=== PATIENT | female | born 1960 | race Caucasian/White ===

== ENCOUNTER 2016-12-08 15:25 | Emergency (ER) | payer MEDICARE, OTHER ==
[2016-12-08] MEDS ORDERED: SODIUM CHLORIDE 0.9% 1,000 ML IV ONE (16:27)
[2016-12-08] MEDS ORDERED: HALOPERIDOL 5 MG/ML VIAL IVP STA (16:27)
[2016-12-08] MEDS ORDERED: HALOPERIDOL 5 MG/ML VIAL ONE (16:42)
== END 2016-12-08 18:08 | disposition home or self-care (01) ==
DX: R51 Headache (principal); Z98.84 Bariatric surgery status

== ENCOUNTER 2017-03-27 09:01 | Outpatient (CLI) | payer MEDICARE, OTHER | END 2017-03-27 09:02 | disposition home or self-care (01) | DX: R06.09 Other forms of dyspnea (principal); R11.2 Nausea with vomiting, unspecified; R60.0 Localized edema; R71.8 Other abnormality of red blood cells; R23.3 Spontaneous ecchymoses ==

== ENCOUNTER 2017-04-23 12:40 | Outpatient (CLI) | payer MEDICARE, OTHER ==
[2017-04-23 13:00] LABS: BASOPHILS % (AUTO) 0.3 %; EOSINOPHILS # (AUTO) 0.1 10^3/uL (0.0-0.7); EOSINOPHILS % (AUTO) 1.9 %; HCT - HEMATOCRIT 34.3 % (37.0-47.0); HGB - HEMOGLOBIN 11.2 g/dL (12.0-16.0); LYMPHOCYTES # (AUTO) 2.9 10^3/uL (1.5-3.5); MEAN CORPUSCULAR HEMOGLOBIN 25.8 pg (27.0-31.0); MEAN CORPUSCULAR HGB CONC 32.5 g/dL (32.0-36.0); MEAN CORPUSCULAR VOLUME 79.3 fL (81.0-99.0); MEAN PLATELET VOLUME 7.2 fL (7.9-10.8); MONOCYTES # (AUTO) 0.5 10^3/uL (0.0-1.0); MONOCYTES % (AUTO) 6.5 %; NEUTROPHILS # (AUTO) 3.9 10^3/uL (1.5-6.6); NEUTROPHILS % (AUTO) 52.3 %; RED BLOOD COUNT 4.33 10^6/uL (4.20-5.40); RED CELL DISTRIBUTION WIDTH 15.1 % (12.0-15.0); UNCORRECTED WHITE BLOOD COUNT 7.4 x10^3/uL; WHITE BLOOD COUNT 7.4 x10^3/uL (4.8-10.8)
[2017-04-23 13:36] LABS: IRON 29 ug/dL (28-170); TOTAL IRON BINDING CAPACITY 459 ug/dL (250-450); TRANSFERRIN 328 mg/dL (192-382)
== END 2017-04-23 12:41 | disposition home or self-care (01) ==
LOC: LAB 12:40
PROVIDERS: ATTEND Family Medicine
DX: R71.8 Other abnormality of red blood cells (principal)
CPT/HCPCS: 36415; 83540; 84466; 85025

== ENCOUNTER 2017-09-17 11:29 | Outpatient (CLI) | payer MEDICARE, OTHER | END 2017-09-17 11:30 | disposition home or self-care (01) | LOC: SC 11:29 | PROVIDERS: ATTEND Internal Medicine Pulmonary Disease | DX: G47.33 Obstructive sleep apnea (adult) (pediatric) (principal) | CPT/HCPCS: 99203; G0463; 99212 ==

== ENCOUNTER 2017-11-06 20:24 | Outpatient (CLI) | payer MEDICARE, OTHER | END 2017-11-06 20:25 | disposition home or self-care (01) | LOC: SC 20:24 | PROVIDERS: ATTEND Internal Medicine Pulmonary Disease | DX: G47.33 Obstructive sleep apnea (adult) (pediatric) (principal) | CPT/HCPCS: 95810 ==

== ENCOUNTER 2017-11-13 14:34 | Emergency (ER) | payer MEDICARE, OTHER ==
[2017-11-13] MEDS ORDERED: DEXAMETHASONE 10 MG/ML VIAL PO STA (15:16)
--- NOTE | 2017-11-13 15:22 | ED Physician Documentation ---
PD [facility] HEENT - Stated complaint Stated Complaint: EAR PX - Chief complaint Chief Complaint: Heent - History obtained from History obtained from: Patient - History of Present Illness Timing - onset: How many weeks ago (2) Timing - duration: Weeks (2) Timing - details: Gradual onset, Still present Location: Left ear, Sinuses, Nose Improves: Medication Associated symptoms: Congestion, Rhinorrhea. No: Fever Similar symptoms before: Diagnosis (sinusitis and ruptured ear drum) Recently seen: Not recently seen - Additional information Additional information: 57-year-old female with a prior history of ruptured left TM has developed sinus symptoms over the past 2 weeks and these have progressed. She now has developed pain in both of her ears. This is similar to what she had when she ruptured her left TM. Review of Systems Constitutional: denies: Fever, Chills Eyes: denies: Decreased vision Ears: reports: Ear pain Nose: reports: Rhinorrhea / runny nose, Congestion, Sinus pressure / pain Throat: reports: Sore throat Cardiac: denies: Chest pain / pressure, Palpitations Respiratory: denies: Dyspnea, Cough GI: denies: Nausea, Vomiting : denies: Dysuria, Frequency Skin: denies: Rash Musculoskeletal: denies: Neck pain, Back pain, Extremity pain Neurologic: denies: Generalized weakness, Focal weakness, Numbness Psychiatric: reports: Insomnia PD PAST MEDICAL HISTORY - Past Medical History Respiratory: Pneumonia - Past Surgical History Past Surgical History: Yes General: Gastric surgery Ortho: Hip replacement, Arthroscopic surgery, 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 - Present Medications Home Medications: Ambulatory Orders Medication Instructions Recorded Confirmed Estrogens, Conjugated [Premarin] 0.625 tab PO QPM 04/17/16 11/13/17 Famotidine [Pepcid] 40 mg PO QPM 04/17/16 11/13/17 Trazodone HCl 200 mg PO DAILY 04/17/16 11/13/17 Acetaminophen/Cod 300/30 [Tylenol 2 each PO Q4-6H PRN 07/25/17 11/13/17 #3] Butalbital/Aspirin/Caffeine 2 cap PO PRN PRN 07/25/17 11/13/17 [Fiorinal 50-325-40 mg Capsule] Divalproex Sodium [Depakote ER] 1,500 mg PO DAILY PM 07/25/17 11/13/17 Ondansetron HCl [Zofran] 8 mg PO PRN PRN 07/25/17 11/13/17 Vortioxetine Hydrobromide 10 mg PO DAILY 07/25/17 11/13/17 [Trintellix] tiZANidine [Zanaflex] 8 mg PO DAILY PM 07/25/17 11/13/17 Azithromycin [Zithromax] 250 mg PO DAILY #6 tablet 11/13/17 - Allergies Allergies/Adverse Reactions: Allergies Allergy/AdvReac Type Severity Reaction Status Date / Time tetracycline Allergy Unknown Verified 08/22/17 14:29 - Social History Does the pt smoke?: No Smoking Status: Never smoker Does the pt drink ETOH?: No Does the pt have substance abuse?: No - POLST Patient has POLST: No PD ED PE NORMAL - Vitals Vital signs reviewed: Yes (normal ) - General General: No acute distress, Well developed/nourished - HEENT HEENT: Atraumatic, PERRL, EOMI, Other (both TM's are inflamed and retracted. Inflamation appears superficial. ) - Neck Neck: Supple, no meningeal sign, No bony TTP - Cardiac Cardiac: RRR, No murmur - Respiratory Respiratory: No respiratory distress, Clear bilaterally - Abdomen Abdomen: Soft, Non tender - Back Back: No CVA TTP, No spinal TTP - Derm Derm: Normal color, Warm and dry, No rash - Extremities Extremities: No deformity, No edema - Neuro Neuro: No motor deficit, No sensory deficit Eye Opening: Spontaneous Motor: Obeys Commands Verbal: Oriented GCS Score: 15 - Psych Psych: Normal mood, Normal affect Results - Vitals Vitals: Vital Signs - 24 hr 11/13/17 14:45 Temperature 36.3 C L Heart Rate 77 Respiratory 16 Rate Blood Pressure 125/68 O2 Saturation 97 Oxygen O2 Source Room air PD MEDICAL DECISION MAKING - ED course Complexity details: considered differential, d/w patient ED course: 57-year-old female with a prior ruptured TM is developed symptoms again and has inflammation in both TMs with retraction of the TMs. She has had sinus congestion not relieved by any [id number] preparations. She is administered dexamethasone here in the emergency department and will place her on a Z-Amauri. She has had good luck with this previously. Departure - Departure Disposition: 01 Home, Self Care Clinical Impression: Otitis media Qualifiers: Otitis media type: suppurative Chronicity: acute Laterality: bilateral Recurrence: not specified as recurrent Spontaneous tympanic membrane rupture: without spontaneous rupture Qualified Code(s): H66.003 - Acute suppurative otitis media without spontaneous rupture of ear drum, bilateral Condition: Stable Instructions: ED Otitis Media Acute Adult Follow-Up: Connor Downing MD [Primary Care Provider] - Prescriptions: Azithromycin [Zithromax] 250 mg PO DAILY #6 tablet
[2017-11-13 15:36] VITALS: BP 125/68
== END 2017-11-13 15:25 | disposition home or self-care (01) ==
LOC: ED 14:34
DX: H66.003 Acute suppurative otitis media without spontaneous rupture of ear drum, bilateral (principal); R09.81 Nasal congestion
CPT/HCPCS: 99283

== ENCOUNTER 2017-11-30 11:15 | Emergency (ER) | payer MEDICARE, OTHER ==
[2017-11-30] MEDS ORDERED: BENZONATATE 100 MG CAPSULE PO STA (12:33)
[2017-11-30] MEDS ORDERED: DEXAMETHASONE 10 MG/ML VIAL PO STA (12:33)
--- NOTE | 2017-11-30 12:36 | ED Physician Documentation ---
History of Present Illness - Stated complaint Stated Complaint: BILAT EAR PX - Chief complaint Chief Complaint: Heent - History obtained from History obtained from: Patient, Family - History of Present Illness Timing: How many weeks ago (2) Pain level max: 7 Pain level now: 6 Improved by: nothing Worsened by: nothing - Additonal information Additional information: Patient is a 57-year-old female who presents to the emergency department after being ill for the past several weeks, she states she was seen recently and treated with azithromycin for a bilateral ear infection. States that her ear pain is worsened over the past 2-3 days. Has nasal congestion, rhinorrhea, Dry cough and is now lost her voice. Review of Systems Ten Systems: 10 systems reviewed and negative Constitutional: denies: Fever, Chills Ears: reports: Ear pain (B) Nose: reports: Rhinorrhea / runny nose, Congestion, Sinus pressure / pain Throat: denies: Sore throat Cardiac: denies: Chest pain / pressure Respiratory: reports: Cough. 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 - Present Medications Home Medications: Ambulatory Orders Medication Instructions Recorded Confirmed Estrogens, Conjugated [Premarin] 0.625 tab PO QPM 04/17/16 11/30/17 Famotidine [Pepcid] 40 mg PO QPM 04/17/16 11/30/17 Trazodone HCl 200 mg PO DAILY 04/17/16 11/30/17 Acetaminophen/Cod 300/30 [Tylenol 2 each PO Q4-6H PRN 07/25/17 11/30/17 #3] Butalbital/Aspirin/Caffeine 2 cap PO PRN PRN 07/25/17 11/30/17 [Fiorinal 50-325-40 mg Capsule] Divalproex Sodium [Depakote ER] 1,500 mg PO DAILY PM 07/25/17 11/30/17 Ondansetron HCl [Zofran] 8 mg PO PRN PRN 07/25/17 11/30/17 Vortioxetine Hydrobromide 10 mg PO DAILY 07/25/17 11/30/17 [Trintellix] tiZANidine [Zanaflex] 8 mg PO DAILY PM 07/25/17 11/30/17 Benzonatate [Tessalon Perle] 100 - 200 mg PO TID PRN #30 capsule 11/30/17 Cetirizine HCl/Pseudoephedrine 1 each PO BID PRN #30 tab.er.12h 11/30/17 [Zyrtec-D Tablet] Meloxicam [Mobic] 7.5 mg PO BID PRN #20 tablet 11/30/17 - Allergies Allergies/Adverse Reactions: Allergies Allergy/AdvReac Type Severity Reaction Status Date / Time tetracycline Allergy Unknown Verified 11/30/17 11:20 - Social History Does the pt smoke?: No Smoking Status: Never smoker Does the pt drink ETOH?: No Does the pt have substance abuse?: No - Immunizations Immunizations are current?: Yes - POLST Patient has POLST: No PD ED PE NORMAL - Vitals Vital signs reviewed: Yes - General General: Alert and oriented X 3, No acute distress - HEENT HEENT: Ears normal, Moist mucous membranes, Other (mild posterior oropharyngeal erythema, without exudates. uvula midline. no sinus tenderness.) - Neck Neck: Supple, no meningeal sign, No adenopathy - Cardiac Cardiac: RRR, Strong equal pulses - Respiratory Respiratory: No respiratory distress, Clear bilaterally - Derm Derm: Warm and dry, No rash - Neuro Neuro: Alert and oriented X 3 - Psych Psych: Normal mood, Normal affect Results - Vitals Vitals: Vital Signs - 24 hr 11/30/17 11:18 Temperature 36 C L Heart Rate 92 Respiratory 16 Rate Blood Pressure 114/92 H O2 Saturation 97 Oxygen O2 Source Room air PD MEDICAL DECISION MAKING - ED course Complexity details: reviewed old records, considered differential, d/w patient, d/w family ED course: Patient is a 57-year-old female with a viral upper respiratory infection. Will place on antitussives as well as decongestants for home and continue supportive care. No evidence of pneumonia, sepsis. No hypoxia. No respiratory distress. Patient counseled regarding signs and symptoms for which I believe and urgent re-evaluation would be necessary. Patient with good understanding of and agreement to plan and is comfortable going home at this time This document was made in part using voice recognition software. While efforts are made to proofread this document, sound alike and grammatical errors may occur. Departure - Departure Disposition: 01 Home, Self Care Clinical Impression: Viral URI Condition: Good Instructions: ED Viral Syndrome Follow-Up: Connor Downing MD [Primary Care Provider] - Within 1 week Prescriptions: Benzonatate [Tessalon Perle] 100 - 200 mg PO TID PRN #30 capsule PRN Reason: Cough Cetirizine HCl/Pseudoephedrine [Zyrtec-D Tablet] 1 each PO BID PRN #30 tab.er.12h PRN Reason: Nasal Congestion Meloxicam [Mobic] 7.5 mg PO BID PRN #20 tablet PRN Reason: Pain Comments: Return if you worsen. drink plenty of fluids and rest. Honey with tea will also help
[2017-11-30 12:52] VITALS: BP 126/82
== END 2017-11-30 13:10 | disposition home or self-care (01) ==
LOC: ED 11:15
DX: J06.9 Acute upper respiratory infection, unspecified (principal); B97.89 Other viral agents as the cause of diseases classified elsewhere; K21.9 Gastro-esophageal reflux disease without esophagitis
CPT/HCPCS: 99283; A9270

== ENCOUNTER 2017-12-11 15:00 | Outpatient (CLI) | payer MEDICARE, OTHER | END 2017-12-11 15:01 | disposition home or self-care (01) | LOC: SC 15:00 | PROVIDERS: ATTEND Nurse Practitioner Family | DX: G47.33 Obstructive sleep apnea (adult) (pediatric) (principal) | CPT/HCPCS: 99214; G0463; 99212 ==

== ENCOUNTER 2018-01-20 17:45 | Emergency (ER) | payer MEDICARE, OTHER ==
--- NOTE | 2018-01-20 19:32 | ED Physician Documentation ---
PD HPI UPPER EXT INJURY - Stated complaint Stated Complaint: RT ARM INJ - Chief complaint Chief Complaint: Ext Problem - History obtained from History obtained from: Patient - History of Present Illness Location: Right, Arm, Forearm Type of injury: Fall (fell down some steps and struck right arm and forearm. Has ROM of joints. 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 - Present Medications Home Medications: Ambulatory Orders Medication Instructions Recorded Confirmed Estrogens, Conjugated [Premarin] 0.625 tab PO QPM 04/17/16 11/30/17 Famotidine [Pepcid] 40 mg PO QPM 04/17/16 11/30/17 Trazodone HCl 200 mg PO DAILY 04/17/16 11/30/17 Acetaminophen/Cod 300/30 [Tylenol 2 each PO Q4-6H PRN 07/25/17 11/30/17 #3] Butalbital/Aspirin/Caffeine 2 cap PO PRN PRN 07/25/17 11/30/17 [Fiorinal 50-325-40 mg Capsule] Divalproex Sodium [Depakote ER] 1,500 mg PO DAILY PM 07/25/17 11/30/17 Ondansetron HCl [Zofran] 8 mg PO PRN PRN 07/25/17 11/30/17 Vortioxetine Hydrobromide 10 mg PO DAILY 07/25/17 11/30/17 [Trintellix] tiZANidine [Zanaflex] 8 mg PO DAILY PM 07/25/17 11/30/17 Benzonatate [Tessalon Perle] 100 - 200 mg PO TID PRN #30 capsule 11/30/17 Cetirizine HCl/Pseudoephedrine 1 each PO BID PRN #30 tab.er.12h 11/30/17 [Zyrtec-D Tablet] Meloxicam [Mobic] 7.5 mg PO BID PRN #20 tablet 11/30/17 HYDROcod/ACETAM 5/325 [[place] 5/325] 1 tab PO Q6H PRN #12 tablet 01/20/18 - Allergies Allergies/Adverse Reactions: Allergies Allergy/AdvReac Type Severity Reaction Status Date / Time adhesive tape Allergy eats skin Verified 01/20/18 17:58 tetracycline Allergy Unknown Verified 01/20/18 17:57 - Social History Does the pt smoke?: No Smoking Status: Never smoker Does the pt drink ETOH?: No Does the pt have substance abuse?: No - Immunizations Immunizations are current?: Yes - POLST Patient has POLST: No PD ED PE NORMAL - Vitals Vital signs reviewed: Yes - General General: Alert and oriented X 3, Well developed/nourished - HEENT HEENT: Atraumatic - Neck Neck: Supple, no meningeal sign, No bony TTP, No adenopathy - Cardiac Cardiac: RRR, No murmur - Respiratory Respiratory: Clear bilaterally - Abdomen Abdomen: Soft, Non tender - Derm Derm: Normal color, Warm and dry - Extremities Extremities: Normal ROM s pain (at shoulder and elbow), Other (right forearm swelling and tender mid forearm. no deformity.) - Neuro Neuro: Alert and oriented X 3, No motor deficit, No sensory deficit Results - Vitals Vitals: Oxygen O2 Source Room air - Rads (name of study) humerus Radiology: Prelim report reviewed (no fracture) forearm Radiology: Prelim report reviewed (no fracture) PD MEDICAL DECISION MAKING - ED course Complexity details: d/w patient Departure - Departure Disposition: 01 Home, Self Care Clinical Impression: Accidental fall Qualifiers: Encounter type: initial encounter Qualified Code(s): W19.XXXA - Unspecified fall, initial encounter Forearm contusion Qualifiers: Encounter type: initial encounter Laterality: right Qualified Code(s): S50.11XA - Contusion of right forearm, initial encounter Condition: Stable Record reviewed to determine appropriate education?: Yes Instructions: ED Contusion Upper Ext Follow-Up: Evert Valverde MD [Primary Care Provider] - Prescriptions: HYDROcod/ACETAM 5/325 [[place] 5/325] 1 tab PO Q6H PRN #12 tablet PRN Reason: Pain Comments: No signs of fractures on x-ray. Use the sling as needed for comfort. Progress activity as able. Tylenol or ibuprofen if needed for pains. Add hydrocodone if needed. Recheck if not improving over the next several days to week. Discharge Date/Time: 01/20/18 22:20
[2018-01-20] MEDS ORDERED: HYDROcod/ACETAM 5/325 MG TABLET PO STA (19:52)
--- NOTE | 2018-01-20 21:17 | XRAY Preliminary Report ---
Exam: XR FOREARM RT IMPRESSION: No evidence for acute fracture. Chronic changes as above. [facility] SITE ID: [id number]
--- NOTE | 2018-01-20 21:17 | XRAY Report ---
EXAM: RIGHT FOREARM RADIOGRAPHY 2 VIEWS RIGHT HUMERUS RADIOGRAPHY 2 VIEWS EXAM DATE: 01/20/2018 08:43 PM. CLINICAL HISTORY: Fell and forearm pain. Injury to right humerus. Pain right elbow and right shoulder . Previous surgeries to right elbow. COMPARISON: None. FINDINGS: No dislocations are seen. Post surgical changes at the distal humerus lateral epicondyle wi th metallic washer. Chronic appearing bone fragment seen at the lateral and medial aspects of the dis blake humerus. Chronic fracture deformity at the radial head and neck. No elbow joint effusion. Mild sc aphoid trapezium/trapezoid and first carpal metacarpal joint space narrowing. No evidence for acute fracture. IMPRESSION: No evidence for acute fracture. Chronic changes as above. [facility] Referring Provider Line: [phone] SITE ID: [id number]
--- NOTE | 2018-01-20 21:17 | XRAY Preliminary Report ---
Exam: XR HUMERUS RT IMPRESSION: No evidence for acute fracture. Chronic changes as above. [facility] SITE ID: [id number]
[2018-01-20 22:01] VITALS: BP 127/53
[2018-01-20] MEDS ORDERED: HYDROcod/ACET 5/325 Prepack 6 PO STA (22:05)
== END 2018-01-20 22:20 | disposition home or self-care (01) ==
LOC: ED 17:45
DX: S50.11XA Contusion of right forearm, initial encounter (principal); W10.9XXA Fall (on) (from) unspecified stairs and steps, initial encounter; W22.09XA Striking against other stationary object, initial encounter; Z96.649 Presence of unspecified artificial hip joint
CPT/HCPCS: 73060; 73090; 99283; A9270

== ENCOUNTER 2018-01-25 09:44 | Outpatient (CLI) | payer MEDICARE, OTHER ==
[2018-01-25 10:07] LABS: BASOPHILS % (AUTO) 0.6 %; EOSINOPHILS # (AUTO) 0.1 10^3/uL (0.0-0.7); EOSINOPHILS % (AUTO) 1.1 %; HGB - HEMOGLOBIN 14.5 g/dL (12.0-16.0); LYMPHOCYTES # (AUTO) 3.4 10^3/uL (1.5-3.5); MEAN CORPUSCULAR HEMOGLOBIN 30.2 pg (27.0-31.0); MEAN CORPUSCULAR HGB CONC 33.4 g/dL (32.0-36.0); MEAN CORPUSCULAR VOLUME 90.3 fL (81.0-99.0); MEAN PLATELET VOLUME 7.2 fL (7.9-10.8); MONOCYTES # (AUTO) 0.4 10^3/uL (0.0-1.0); MONOCYTES % (AUTO) 6.5 %; NEUTROPHILS # (AUTO) 2.2 10^3/uL (1.5-6.6); NEUTROPHILS % (AUTO) 35.8 %; PLT - PLATELET COUNT 155 10^3/uL (130-450); RED BLOOD COUNT 4.81 10^6/uL (4.20-5.40); RED CELL DISTRIBUTION WIDTH 13.4 % (12.0-15.0); WHITE BLOOD COUNT 6.1 x10^3/uL (4.8-10.8)
[2018-01-25 10:32] LABS: ALBUMIN 3.7 g/dL (3.2-5.5); ALBUMIN/GLOBULIN RATIO 1.3 (1.0-2.2); ALKALINE PHOSPHATASE 47 IU/L (42-121); ALT ALANINE AMINOTRANSFERASE < 10 IU/L (10-60); AST ASPARTATE AMINOTRANSFERASE 15 IU/L (10-42); BILIRUBIN,TOTAL 0.4 mg/dL (0.2-1.0); BUN - BLOOD UREA NITROGEN 12 mg/dL (6-20); CALCIUM 8.7 mg/dL (8.5-10.3); CARBON DIOXIDE - CO2 24 mmol/L (21-32); CHLORIDE 105 mmol/L (101-111); CHOL/HDL RATIO 3.6 (<4.4); CHOLESTEROL 207 mg/dL; CREATININE 0.9 mg/dL (0.4-1.0); GFR - MDRD 64 (>89); GLUCOSE 90 mg/dL (70-100); HDL CHOLESTEROL 58 mg/dL; LDL CHOLESTEROL,CALCULATED 115 mg/dL; SODIUM 138 mmol/L (135-145); TOTAL PROTEIN 6.5 g/dL (6.7-8.2); VLDL CHOLESTEROL 34 mg/dL
[2018-01-25 10:44] LABS: HB2 TOTAL 15.8 g/dL; HEMOGLOBIN A1C 0.55 g/dL; HEMOGLOBIN A1C % 5.3 % (4.6-6.2)
== END 2018-01-25 09:45 | disposition home or self-care (01) ==
LOC: LAB 09:44
PROVIDERS: ATTEND Internal Medicine
DX: Z00.00 Encounter for general adult medical examination without abnormal findings (principal); Z86.39 Personal history of other endocrine, nutritional and metabolic disease; Z79.899 Other long term (current) drug therapy
CPT/HCPCS: 36415; 80053; 80061; 83036; 83721; 84443; 85025

== ENCOUNTER 2018-01-29 10:21 | Outpatient (CLI) | payer MEDICARE, OTHER | END 2018-01-29 10:22 | disposition home or self-care (01) | LOC: SC 10:21 | PROVIDERS: ATTEND Nurse Practitioner Family | DX: G47.33 Obstructive sleep apnea (adult) (pediatric) (principal) | CPT/HCPCS: 99214; G0463; 99212 ==

== ENCOUNTER 2018-02-16 14:48 | Outpatient (CLI) | payer MEDICARE, OTHER | END 2018-02-16 14:49 | disposition critical access hospital (66) | LOC: EMS 14:48 | PROVIDERS: ATTEND Surgery | DX: M25.552 Pain in left hip (principal); M54.5 Low back pain; M25.572 Pain in left ankle and joints of left foot; M25.532 Pain in left wrist; W01.0XXA Fall on same level from slipping, tripping and stumbling without subsequent striking against object, initial encounter; Y92.511 Restaurant or cafe as the place of occurrence of the external cause | CPT/HCPCS: A0425; A0427 ==

== ENCOUNTER 2018-02-16 15:04 | Emergency (ER) | payer MEDICARE, OTHER ==
[2018-02-16] MEDS ORDERED: ONDANSETRON 4 MG/2 ML VIAL IVP STA (15:42)
[2018-02-16] MEDS ORDERED: HYDROmorphone 1 MG/ML CARPUJECT IVP STA ×2 (15:42→18:00)
--- NOTE | 2018-02-16 15:44 | ED Physician Documentation ---
PD HPI LOWER EXT INJURY - Stated complaint Stated Complaint: GLF - Chief complaint Chief Complaint: Trauma Ext - History obtained from History obtained from: Patient, Family, EMS - History of Present Illness PD HPI LOW EXT INJURY LOCATION: Other (57-year-old woman status post remote bilateral hip replacement had a slip and fall at a fast food restaurant landing directly on her left hip and felt a crack with severe left hip pain. She also has mild low back pain from this and mild left ankle pain but she does not think that is any worse than normal. She had 200 mcg of fentanyl in route and is still in severe pain. 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 : None HEENT: None Psych: Depression Musculoskeletal: Osteopenia, Chronic back pain Derm: None - Past Surgical History Past Surgical History: Yes General: Gastric surgery Ortho: Hip replacement, Arthroscopic surgery, 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 - Present Medications Home Medications: Ambulatory Orders Medication Instructions Recorded Confirmed Estrogens, Conjugated [Premarin] 0.625 tab PO QPM 04/17/16 11/30/17 Famotidine [Pepcid] 40 mg PO QPM 04/17/16 11/30/17 Trazodone HCl 200 mg PO DAILY 04/17/16 11/30/17 Acetaminophen/Cod 300/30 [Tylenol 2 each PO Q4-6H PRN 07/25/17 02/16/18 #3] Butalbital/Aspirin/Caffeine 2 cap PO PRN PRN 07/25/17 11/30/17 [Fiorinal 50-325-40 mg Capsule] Divalproex Sodium [Depakote ER] 1,500 mg PO DAILY PM 07/25/17 11/30/17 Ondansetron HCl [Zofran] 8 mg PO PRN PRN 07/25/17 11/30/17 Vortioxetine Hydrobromide 10 mg PO DAILY 07/25/17 11/30/17 [Trintellix] Meloxicam [Mobic] 7.5 mg PO BID PRN #20 tablet 11/30/17 HYDROcod/ACETAM 5/325 [[place] 5/325] 1 tab PO Q6H PRN #12 tablet 01/20/18 Oxycodone HCl/Acetaminophen 1 - 2 tab PO Q4H PRN #15 tablet 02/16/18 [Percocet 5-325 mg Tablet] - Allergies Allergies/Adverse Reactions: Allergies Allergy/AdvReac Type Severity Reaction Status Date / Time adhesive tape Allergy eats skin Verified 02/16/18 15:14 tetracycline Allergy Unknown Verified 02/16/18 15:14 - Social History Does the pt smoke?: No Smoking Status: Never smoker Does the pt drink ETOH?: No Does the pt have substance abuse?: No - Immunizations Immunizations are current?: Yes - POLST Patient has POLST: No PD ED PE NORMAL - Vitals Vital signs reviewed: Yes - General General: Alert and oriented X 3, No acute distress - HEENT HEENT: PERRL, EOMI - Neck Neck: Supple, no meningeal sign, No bony TTP - Cardiac Cardiac: RRR, No murmur - Respiratory Respiratory: No respiratory distress, Clear bilaterally - Abdomen Abdomen: Normal bowel sounds, Soft, Non tender - Back Back: No CVA TTP, No spinal TTP - Extremities Extremities: Other (She is profoundly tender to the pelvic brim and left hip, there is no shortening or rotation but she has severe pain with internal or external rotation. There is also mild pain over the lateral malleolus of the left ankle. Good pedal pulses.) - Neuro Neuro: Alert and oriented X 3, Normal speech - Psych Psych: Normal mood, Normal affect Results - Vitals Vitals: Vital Signs - 24 hr 02/16/18 02/16/18 02/16/18 15:08 17:40 19:02 Temperature 36.6 C 36.4 C L 36.6 C Heart Rate 73 61 74 Respiratory 16 20 16 Rate Blood Pressure 115/64 116/75 112/49 L O2 Saturation 97 99 99 02/16/18 20:34 Temperature 36.3 C L Heart Rate 76 Respiratory 15 Rate Blood Pressure 122/65 O2 Saturation 95 Oxygen O2 Source Room air - Labs Labs: Laboratory Tests 02/16/18 02/16/18 02/16/18 16:26 16:26 16:26 WBC 5.8 RBC 4.34 Hgb 12.7 Hct 38.6 MCV 88.9 MCH 29.2 MCHC 32.9 RDW 13.0 Plt Count 157 MPV 7.7 L Neut # 3.1 Lymph # 2.3 [place] # 0.3 Eos # 0.0 Baso # 0.1 Absolute Nucleated RBC 0.00 Nucleated RBC % 0.1 PT 12.2 INR 1.1 Sodium 137 Potassium 3.7 Chloride 106 Carbon Dioxide 25 Anion Gap 6.0 BUN 13 Creatinine 1.1 H Estimated GFR (MDRD) 51 L Glucose 115 H Calcium 8.4 L Total Bilirubin 0.6 AST 14 ALT 10 Alkaline Phosphatase 50 Total Protein 5.9 L Albumin 3.4 Globulin 2.5 Albumin/Globulin Ratio 1.4 Lipase 10 L Blood Type Antibody Screen 02/16/18 16:26 WBC RBC Hgb Hct MCV MCH MCHC RDW Plt Count MPV Neut # Lymph # [place] # Eos # Baso # Absolute Nucleated RBC Nucleated RBC % PT INR Sodium Potassium Chloride Carbon Dioxide Anion Gap BUN Creatinine Estimated GFR (MDRD) Glucose Calcium Total Bilirubin AST ALT Alkaline Phosphatase Total Protein Albumin Globulin Albumin/Globulin Ratio Lipase Blood Type A NEGATIVE Antibody Screen NEGATIVE - Rads (name of study) Xrays of the left hip/femur/ankle and L spine Radiology: EMP read contemporaneously (all negative for acute issues.) CT LLE Radiology: EMP read contemporaneously (IMPRESSION: 1. No evidence of fracture. 2. Subcutaneous hematoma on the left, lateral to the left greater trochanter measuring up to 7.4 cm. Note is made of 2 small high density areas near the superior aspect of the hematoma suspicious for continued/active bleeding. 3. Status post bilateral total hip replacements with anatomic alignment. 4. Left ovarian low density lesion measuring 2.7 cm, likely a postmenopausal cyst. Follow-up outpatient pelvic ultrasound suggested for further characterization. ) PD MEDICAL DECISION MAKING - ED course ED course: 57-year-old woman with history of hip replacements presents after a ground- level fall with severe hip pain, no deformity or shortening though. X-rays were negative but given continued severe pain a CT was done with results as shown, follow-up advised for the ovarian cyst. She was able to walk and bear weight with a walker here but with a lot of difficulty. Offered obs admit but feels like she can go home. Departure - Departure Disposition: 01 Home, Self Care Clinical Impression: Injury of hip and thigh Qualifiers: Encounter type: initial encounter Laterality: left Qualified Code(s): S79.912A - Unspecified injury of left hip, initial encounter Knee injury Qualifiers: Encounter type: initial encounter Laterality: left Qualified Code(s): S89.92XA - Unspecified injury of left lower leg, initial encounter Injury of lower leg Qualifiers: Encounter type: initial encounter Laterality: left Qualified Code(s): S89.92XA - Unspecified injury of left lower leg, initial encounter Condition: Good Record reviewed to determine appropriate education?: Yes Instructions: ED Contusion Soft Tissue Prescriptions: Oxycodone HCl/Acetaminophen [Percocet 5-325 mg Tablet] 1 - 2 tab PO Q4H PRN #15 tablet PRN Reason: Pain Comments: As discussed, you do have a left ovarian cyst which appears benign on the CAT scan, that said you will need a follow-up ultrasound to confirm its resolution. Please discuss this with your doctor at the next appointment, follow-up with him or her within the week. Return if worse. Do not drink or drive while taking narcotic pain medication. Note that many narcotic pain relievers also contain Tylenol/acetaminophen. Please ensure that your total dose of acetaminophen from all sources does not exceed 3 g (3000 mg) per day. You may get constipated while on this medication. Take a stool softener such as Colace twice a day while you are on it. Also add an [id number] laxative such as senna or MiraLAX on any day that you do not have a bowel movement. If you received a narcotic pain medication or sedative while in the emergency department, do not drive for the next 24 hours.
[2018-02-16] MEDS ORDERED: diazePAM INJ 5 MG/ML SYRINGE IVP STA ×2 (16:15→19:41)
[2018-02-16 16:37] LABS: BASOPHILS # (AUTO) 0.1 10^3/uL (0.0-0.1); BASOPHILS % (AUTO) 0.9 %; EOSINOPHILS % (AUTO) 0.4 %; HGB - HEMOGLOBIN 12.7 g/dL (12.0-16.0); LYMPHOCYTES # (AUTO) 2.3 10^3/uL (1.5-3.5); LYMPHOCYTES % (AUTO) 39.7 %; MEAN CORPUSCULAR HEMOGLOBIN 29.2 pg (27.0-31.0); MEAN CORPUSCULAR HGB CONC 32.9 g/dL (32.0-36.0); MEAN CORPUSCULAR VOLUME 88.9 fL (81.0-99.0); MEAN PLATELET VOLUME 7.7 fL (7.9-10.8); MONOCYTES # (AUTO) 0.3 10^3/uL (0.0-1.0); MONOCYTES % (AUTO) 5.3 %; NEUTROPHILS # (AUTO) 3.1 10^3/uL (1.5-6.6); NEUTROPHILS % (AUTO) 53.7 %; PLT - PLATELET COUNT 157 10^3/uL (130-450); RED BLOOD COUNT 4.34 10^6/uL (4.20-5.40); WHITE BLOOD COUNT 5.8 x10^3/uL (4.8-10.8)
[2018-02-16 16:46] LABS: INR 1.1 (0.8-1.2); PT - PROTHROMBIN TIME 12.2 secs (9.9-12.6)
[2018-02-16 16:47] LABS: ALBUMIN 3.4 g/dL (3.2-5.5); ALBUMIN/GLOBULIN RATIO 1.4 (1.0-2.2); BILIRUBIN,TOTAL 0.6 mg/dL (0.2-1.0); CALCIUM 8.4 mg/dL (8.5-10.3); CREATININE 1.1 mg/dL (0.4-1.0); TOTAL PROTEIN 5.9 g/dL (6.7-8.2)
--- NOTE | 2018-02-16 17:51 | XRAY Preliminary Report ---
Exam: XR HIP W/PELVIS 2-3V LT IMPRESSION: No acute findings. Bilateral hip prostheses in satisfactory alignment. [facility] SITE ID: [id number]
--- NOTE | 2018-02-16 17:52 | XRAY Report ---
EXAM: LEFT HIP AND PELVIS RADIOGRAPHY EXAM DATE: 02/16/2018 05:23 PM. HISTORY: Hip/leg/ankle inj. COMPARISONS: None. TECHNIQUE: 1 view of the pelvis and 1 view of the hip. FINDINGS: Bones: No acute fracture. Prominent cortical thickening along the medial aspect of the right proximal humeral diaphysis distal to the femoral stem component, may reflect prior stress fracture. Joints: Bilateral hip prostheses in satisfactory alignment. No evidence of hardware loosening or fail ure. Lower lumbar fusion hardware. Soft Tissues: Unremarkable. IMPRESSION: No acute findings. Bilateral hip prostheses in satisfactory alignment. [facility] Referring Provider Line: [phone] SITE ID: [id number]
--- NOTE | 2018-02-16 18:01 | XRAY Report ---
EXAM: LEFT ANKLE RADIOGRAPHY EXAM DATE: 02/16/2018 05:22 PM. CLINICAL HISTORY: Hip/leg/ankle inj. COMPARISON: None. TECHNIQUE: 3 views. FINDINGS: Bones: No acute fracture. Osteophyte formation at the medial and lateral malleoli. Suture anchors in the calcaneus and talus. Joints: No effusion. No subluxations. The ankle mortise is preserved. Soft Tissues: Mild lateral soft tissue swelling. IMPRESSION: 1. No acute osseous abnormality. 2. Tibiotalar osteoarthrosis. [facility] Referring Provider Line: [phone] SITE ID: [id number]
--- NOTE | 2018-02-16 18:01 | XRAY Preliminary Report ---
Exam: XR ANKLE 3 VIEW LT IMPRESSION: 1. No acute osseous abnormality. 2. Tibiotalar osteoarthrosis. [facility] SITE ID: [id number]
--- NOTE | 2018-02-16 18:02 | XRAY Preliminary Report ---
Exam: XR FEMUR 2V LT IMPRESSION: No acute osseous abnormality. [facility] SITE ID: [id number]
--- NOTE | 2018-02-16 18:02 | XRAY Report ---
EXAM: LEFT FEMUR RADIOGRAPHY EXAM DATE: 02/16/2018 05:22 PM. CLINICAL HISTORY: Hip/leg/ankle inj. COMPARISON: Same day pelvis. TECHNIQUE: 2 views. FINDINGS: Bones: No acute fracture. Joints: Left hip prosthesis without evidence of complication. Knee joint alignment is normal. Soft Tissues: No focal soft tissue swelling. IMPRESSION: No acute osseous abnormality. [facility] Referring Provider Line: [phone] SITE ID: [id number]
--- NOTE | 2018-02-16 18:07 | XRAY Report ---
EXAM: LUMBOSACRAL SPINE RADIOGRAPHY EXAM DATE: 02/16/2018 05:23 PM. CLINICAL HISTORY: Hip/leg/ankle inj/back inj. COMPARISONS: 04/26/2016. TECHNIQUE: 2 views. FINDINGS: L4-S1 posterior fusion hardware and posterior decompression. No evidence of hardware complication. No acute fracture. Normal alignment. Mild disk degeneration. Bilateral upper quadrant clips. IMPRESSION: No evidence of acute fracture. L4-S1 posterior fusion. [facility] Referring Provider Line: [phone] SITE ID: [id number]
--- NOTE | 2018-02-16 18:07 | XRAY Preliminary Report ---
Exam: XR LUMBAR SPINE 2 VIEW IMPRESSION: No evidence of acute fracture. L4-S1 posterior fusion. [facility] SITE ID: [id number]
[2018-02-16] MEDS ORDERED: IOPAMIDOL-300 100 ML VIAL ONE (18:41)
[2018-02-16] MEDS ORDERED: IOPAMIDOL-300 100 ML VIAL IVP ONE (19:08)
--- NOTE | 2018-02-16 19:55 | CT Report ---
EXAM: CT BONY PELVIS WITHOUT CONTRAST EXAM DATE: 02/16/2018 07:07 PM. CLINICAL HISTORY: Left hip pain. COMPARISON: Left hip x-ray 02/16/2018. TECHNIQUE: Thin-section axial images were acquired of the pelvis without contrast. Post-processing: C oronal and sagittal reformats. Other: None. In accordance with CT protocol optimization, one or more of the following dose reduction techniques w ere utilized for this exam: automated exposure control, adjustment of mA and/or KV based on patient s ize, or use of iterative reconstructive technique. FINDINGS: Bones: No fracture or bone lesion. Sacroiliac Joints: No widening, erosions, or sclerosis. Symphysis Pubis: Minimal osteophytes and subcortical cysts. Right Hip: Status post right total hip replacement with anatomic alignment. Left Hip: Status post left total hip replacement with anatomic alignment. Pelvic Cavity: Prominent beam-hardening artifact from the patient's hip prostheses. No dilated loops of large or small intestine. Note is made of a left ovarian cyst measuring 2.7 cm, likely postmenopau primitivo. Other: Status post lumbar spine surgery with posterior mumtaz and pedicle screws partially included on t he examination with intervertebral spacers at L4-L5 and L5-S1. Left subcutaneous hematoma lateral to the left greater trochanter measuring up to 7.4 x 6.8 cm. There is a fair amount of beam hardening ar tifact in this area however there are 2 areas near the superior aspect of the hematoma which are high er density and could represent some active hemorrhage. IMPRESSION: 1. No evidence of fracture. 2. Subcutaneous hematoma on the left, lateral to the left greater trochanter measuring up to 7.4 cm. Note is made of 2 small high density areas near the superior aspect of the hematoma suspicious for co ntinued/active bleeding. 3. Status post bilateral total hip replacements with anatomic alignment. 4. Left ovarian low density lesion measuring 2.7 cm, likely a postmenopausal cyst. Follow-up outpatie nt pelvic ultrasound suggested for further characterization. 5. Mild osteitis pubis. [facility] Referring Provider Line: [phone] SITE ID: [id number]
[2018-02-16] MEDS ORDERED: KETOROLAC 60 MG/2 ML VIAL IVP STA (20:24)
[2018-02-16 20:34] VITALS: BP 122/65
[2018-02-16] MEDS: oxyCODONE/ACET 5/325 Prepack 4 PO STA ×2 (20:37→20:38)
== END 2018-02-16 20:48 | disposition home or self-care (01) ==
LOC: EDUNIT# → ED 15:04
DX: S79.912A Unspecified injury of left hip, initial encounter (principal); S89.92XA Unspecified injury of left lower leg, initial encounter; W01.0XXA Fall on same level from slipping, tripping and stumbling without subsequent striking against object, initial encounter; Y92.511 Restaurant or cafe as the place of occurrence of the external cause; N83.202 Unspecified ovarian cyst, left side; Z96.643 Presence of artificial hip joint, bilateral
CPT/HCPCS: 36415; 72100; 72193; 73502; 73552; 73610; 80053; 83690; 85025; 85610; 86850; 86900; 86901; 96374; 96375; 96376; 99284; J1170; Q9967

== ENCOUNTER 2018-04-04 09:48 | Outpatient (CLI) | payer MEDICARE, OTHER | END 2018-04-04 09:49 | disposition home or self-care (01) | LOC: SC 09:48 | PROVIDERS: ATTEND Nurse Practitioner Family | DX: G47.33 Obstructive sleep apnea (adult) (pediatric) (principal); F41.9 Anxiety disorder, unspecified; F32.9 Major depressive disorder, single episode, unspecified | CPT/HCPCS: 99214; G0463; 99212 ==

== ENCOUNTER 2018-05-17 16:59 | Outpatient (CLI) | payer MEDICARE, OTHER ==
[2018-05-17 17:17] LABS: BASOPHILS % (AUTO) 0.4 %; EOSINOPHILS # (AUTO) 0.1 10^3/uL (0.0-0.7); EOSINOPHILS % (AUTO) 1.4 %; HGB - HEMOGLOBIN 13.2 g/dL (12.0-16.0); LYMPHOCYTES # (AUTO) 3.1 10^3/uL (1.5-3.5); LYMPHOCYTES % (AUTO) 54.6 %; MEAN CORPUSCULAR HEMOGLOBIN 29.9 pg (27.0-31.0); MEAN CORPUSCULAR HGB CONC 32.9 g/dL (32.0-36.0); MEAN CORPUSCULAR VOLUME 91.1 fL (81.0-99.0); MEAN PLATELET VOLUME 7.3 fL (7.9-10.8); MONOCYTES # (AUTO) 0.3 10^3/uL (0.0-1.0); MONOCYTES % (AUTO) 5.6 %; NEUTROPHILS # (AUTO) 2.2 10^3/uL (1.5-6.6); PLT - PLATELET COUNT 177 10^3/uL (130-450); RED CELL DISTRIBUTION WIDTH 13.1 % (12.0-15.0); WHITE BLOOD COUNT 5.7 x10^3/uL (4.8-10.8)
[2018-05-17 17:23] LABS: CALCIUM 8.9 mg/dL (8.5-10.3); CREATININE 1.2 mg/dL (0.4-1.0)
== END 2018-05-17 17:00 | disposition home or self-care (01) ==
LOC: LAB 16:59
PROVIDERS: ATTEND Internal Medicine
DX: Z01.810 Encounter for preprocedural cardiovascular examination (principal)
CPT/HCPCS: 36415; 80048; 85025

== ENCOUNTER 2018-05-28 15:29 | Outpatient (CLI) | payer MEDICARE, OTHER | END 2018-05-28 15:30 | disposition home or self-care (01) | LOC: SC 15:29 | PROVIDERS: ATTEND Nurse Practitioner Family | DX: G47.33 Obstructive sleep apnea (adult) (pediatric) (principal) | CPT/HCPCS: 99214; G0463; 99212 ==

== ENCOUNTER 2018-06-20 08:21 | Outpatient (CLI) | payer MEDICARE, OTHER | END 2018-06-20 08:22 | disposition home or self-care (01) | LOC: LAB.WCP 08:21 | PROVIDERS: ATTEND Family Medicine | DX: N83.9 Noninflammatory disorder of ovary, fallopian tube and broad ligament, unspecified (principal) | CPT/HCPCS: 36415; 86304 ==

== ENCOUNTER 2018-06-24 10:45 | Outpatient (CLI) | payer MEDICARE, OTHER ==
--- NOTE | 2018-06-25 11:54 | Mammography Report ---
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 TECHNIQUE: Bilateral CC and MLO views were obtained. COMPARISON: 09/12/2016. FINDINGS: The breasts demonstrate heterogeneously dense fibroglandular parenchyma bilaterally. Subtle vascular calcifications are noted, a typically benign finding. No suspicious masses, clustered microcalcifications, or regions of architectural distortion are identified. IMPRESSION: Benign findings RECOMMENDATION: Routine annual screening unless otherwise clinically indicated. BIRADS CATEGORY 2: Benign findings STANDARD QUALIFYING STATEMENTS: 1. This examination was reviewed with the aid of Computer-Aided Detection (CAD). 2. A negative or benign imaging report should not delay biopsy if clinically suspicious findings are present. Consider surgical consultation if warrented. More than 5% of cancers are not identified by imaging. 3. Dense breasts may obscure an underlying neoplasm.
== END 2018-06-24 10:46 | disposition home or self-care (01) ==
LOC: DI.N 10:45
PROVIDERS: ATTEND Family Medicine
DX: Z12.31 Encounter for screening mammogram for malignant neoplasm of breast (principal); Z80.3 Family history of malignant neoplasm of breast
CPT/HCPCS: 77067

== ENCOUNTER 2018-07-01 19:04 | Outpatient (CLI) | payer MEDICARE, OTHER ==
--- NOTE | 2018-07-02 08:38 | Ultrasound Report ---
Procedure Date: 07/01/2018 Accession Number: [id number] / [id number] Procedure: US - Pelvic w/Transvaginal CPT Code: FULL RESULT: EXAM: PELVIC ULTRASOUND EXAM DATE: 07/01/2018 07:45 PM. CLINICAL HISTORY: Ovarian mass. History of hysterectomy. COMPARISON: Lower extremity left w/ 02/16/2018. TECHNIQUE: Realtime transabdominal pelvic scan performed to identify the uterus and adnexa and as an overview of other pelvic structures, followed by transvaginal scan to provide greater detail of the uterus and adnexa, with static image documentation. FINDINGS: Uterus: Surgically absent. No sonographic abnormality is identified at the hysterectomy site. Right Ovary: 1.2 x 1.4 x 1.1 cm, volume 1.0 cc. Overall, the ovary is not well seen. In the right adnexa there is a 16 mm simple-appearing cyst which may be ovarian in origin although this is difficult to assess given the relative inconspicuous appearance of the ovary. Left Ovary: 3.2 x 2.3 x 2.3 cm, volume 9 cc. Overall, the ovary is not well seen. In the left adnexa there is a 3.0 cm relatively simple-appearing cyst seen which may correspond with similar findings seen on CT. Free Fluid: None. Other: None. IMPRESSION: 1. Overall poor visualization of the ovaries, likely atrophic. Simple-appearing bilateral adnexal cysts are seen measuring up to 1.6 cm on the right and 3.0 cm on the left, likely benign. However, given postmenopausal status, consider follow-up ultrasound in one year for further evaluation. 2. Status post hysterectomy changes, intact. [facility]
== END 2018-07-01 19:05 | disposition home or self-care (01) ==
LOC: DI 19:04
PROVIDERS: ATTEND Family Medicine
DX: N83.9 Noninflammatory disorder of ovary, fallopian tube and broad ligament, unspecified (principal); N83.292 Other ovarian cyst, left side; N83.291 Other ovarian cyst, right side
CPT/HCPCS: 76830; 76856

== ENCOUNTER 2018-08-13 15:52 | Outpatient (CLI) | payer MEDICARE, OTHER ==
[2018-08-13 16:35] LABS: BASOPHILS % (AUTO) 0.5 %; EOSINOPHILS # (AUTO) 0.1 10^3/uL (0.0-0.7); HGB - HEMOGLOBIN 13.7 g/dL (12.0-16.0); LYMPHOCYTES # (AUTO) 3.2 10^3/uL (1.5-3.5); LYMPHOCYTES % (AUTO) 50.5 %; MEAN CORPUSCULAR HEMOGLOBIN 30.3 pg (27.0-31.0); MEAN CORPUSCULAR HGB CONC 33.2 g/dL (32.0-36.0); MEAN CORPUSCULAR VOLUME 91.3 fL (81.0-99.0); MEAN PLATELET VOLUME 6.9 fL (7.9-10.8); MONOCYTES # (AUTO) 0.3 10^3/uL (0.0-1.0); MONOCYTES % (AUTO) 5.1 %; NEUTROPHILS # (AUTO) 2.6 10^3/uL (1.5-6.6); NEUTROPHILS % (AUTO) 41.9 %; PLT - PLATELET COUNT 216 10^3/uL (130-450); RED BLOOD COUNT 4.52 10^6/uL (4.20-5.40); RED CELL DISTRIBUTION WIDTH 14.2 % (12.0-15.0); WHITE BLOOD COUNT 6.3 x10^3/uL (4.8-10.8)
[2018-08-13 16:42] LABS: ALBUMIN 3.8 g/dL (3.2-5.5); ALBUMIN/GLOBULIN RATIO 1.3 (1.0-2.2); BILIRUBIN,TOTAL 0.4 mg/dL (0.2-1.0); CALCIUM 9.1 mg/dL (8.5-10.3); CREATININE 1.1 mg/dL (0.4-1.0); TOTAL PROTEIN 6.8 g/dL (6.7-8.2)
== END 2018-08-13 15:53 | disposition home or self-care (01) ==
LOC: LAB 15:52
PROVIDERS: ATTEND Obstetrics & Gynecology
DX: Z01.812 Encounter for preprocedural laboratory examination (principal); D27.0 Benign neoplasm of right ovary
CPT/HCPCS: 36415; 80053; 85025; 86850; 86900; 86901

== ENCOUNTER 2018-08-14 10:21 | Day surgery (SDC) | payer MEDICARE, OTHER ==
--- NOTE | 2018-08-13 16:02 | PREOP HISTORY & PHYSICAL ---
DATE OF SERVICE: 08/13/2018 Physician: Adriel Mo MD ANTICIPATED DATE OF PROCEDURE: 08/14/2018 IDENTIFICATION: The patient is a 60-year-old, G2, P2, female who presents with a persistent right ovarian cyst. Patient had a pelvic imaging, which shows evidence of a 2.7-cm ovarian cyst on pelvic CT. She had a CA-125, which is mildly elevated at 37.5, however, she is a nonsmoker, which makes this a concern. She denies any pain associated with this. She has previously had a hysterectomy. PAST MEDICAL HISTORY: Positive for CLOVIS. She has a BMI of 34.6. She also has a history of pneumonia, migraines, GERD, depression, as well as osteopenia and chronic back pain. PAST SURGICAL HISTORY: Positive for hip replacement, as well as arthroscopy surgery. She has also had her uterus removed. Open Cholecystectomy, Abdominoplasty. Lapbanding CURRENT MEDICATIONS: 1. Premarin 0.625. 2. Famotidine for her GERD at bedtime. . 3. She also takes trazodone 20 mg. 4. Depakote extended-release 1500 mg at bedtime. 5. She is also taking meloxicam 7.5 mg p.o. b.i.d. ALLERGIES: TAPE, WELL DOXYCYCLINE. HABITS: The patient denies use of alcohol, tobacco, or street or addictive drugs. SOCIAL HISTORY: The patient is and lives with her spouse at this time. PHYSICAL EXAMINATION: GENERAL: The patient is a well-developed, well-nourished, white female. She is in no acute distress at this time. VITAL SIGNS: Her blood pressure today is 122/80. BMI of 34.7. HEENT: Pupils equal and round. Extraocular muscles are intact. Thyroid is not palpably enlarged. HEART: Regular rate and rhythm without murmurs. LUNGS: Lung mckeon are clear without rales or wheezes. BACK: No spinal or CVA tenderness noted. PELVIC: Exam performed on 07/04/2018: Normal external genitalia. Bladder is normal. The vagina shows a multiparous introitus. There is no evidence of occult prolapse, and the vagina resides high in the pelvic cavity. There is some mild atrophy, secondary to hypoestrogenic state. Cervix is surgically absent, as well as uterus. Adnexa are nonpalpable, secondary to abdominal wall thickness. IMPRESSION AND PLAN: The patient is a 58-year-old, G2, P2, female with a persistent ovarian cyst on CT. With a mildly elevated CA-125, it is felt important that the cyst of the ovary be removed. We will plan to perform this laparoscopically. We will also plan to take the tubes out. Risks and benefits have been explained to the patient, including those, but not limited to, bleeding, infection, injury to pelvic organs, which include the bowel, bladder, and ureters. She is aware of the potential for DVT with PE, as well as postop adhesions, which could cause pain, bowel obstruction. TD: 08/13/2018 15:19 BONILLA
[2018-08-14] MEDS ORDERED: ceFAZolin 2 GM/50 ML 2 GM/50 ML BAG IV ONE ×2 (10:27→12:14)
[2018-08-14] MEDS ORDERED: BUPIVACAINE 0.25%-EPI 1:200000 PF 30 ML VIAL ONE (10:41)
--- NOTE | 2018-08-14 10:51 | ANESTHESIA ---
Pre-Anesthesia VS, & Labs - Diagnosis Right ovarian cysts - Procedure Laparoscopic salpingo-oophorectomy Vital Signs: Temp Pulse Resp BP Pulse Ox 36.6 C 67 16 122/76 97 08/14/18 10:30 08/14/18 10:30 08/14/18 10:30 08/14/18 10:30 08/14/18 10:30 Height 5 ft 6 in Weight (kg) 96.5 kg Body Mass Index 32.1 - NPO >8 hours - Is Patient ?: Not Applicable - Lab Results Lab results reviewed: Yes Home Medications and Allergies Home Medications: Ambulatory Orders Mirtazapine 60 mg PO DAILY PM 08/14/18 tiZANidine [Zanaflex] 8 mg PO DAILY PM 08/14/18 Famotidine [Pepcid] 40 mg PO QPM 04/17/16 Trazodone HCl 400 mg PO DAILY 04/17/16 Acetaminophen/Cod 300/30 [Tylenol #3] 2 each PO Q4-6H PRN 07/25/17 Butalbital/Aspirin/Caffeine [Fiorinal 50-325-40 mg Capsule] 2 cap PO PRN PRN 07/25/17 Divalproex Sodium [Depakote ER] 250 mg PO DAILY PM 07/25/17 Mirtazapine 60 mg PO DAILY PM 08/14/18 tiZANidine [Zanaflex] 8 mg PO DAILY PM 08/14/18 Allergies/Adverse Reactions: Allergies Allergy/AdvReac Type Severity Reaction Status Date / Time adhesive tape Allergy Rash Verified 08/13/18 16:45 tetracycline Allergy Unknown Verified 08/13/18 16:45 Anes History & Medical History - Anesthetic History Anesthesia Complications: reports: No previous complications Family history of Anesthesia Complications: Denies Family history of Malignant Hyperthermia: Denies - Medical History Cardiovascular: reports: None Pulmonary: reports: Sleep apnea Gastrointestinal: reports: GERD, Ulcers Urinary: reports: None Neuro: reports: Head injury, Migraines Musculoskeletal: reports: Osteopenia, Chronic back pain Endocrine/Autoimmune: reports: None Blood Disorders: reports: None Skin: reports: None Smoking Status: Never smoker Psychosocial: reports: No issues indicated - Surgical History General: Cholecystectomy, Appendectomy, Gastric surgery, EGD Eyes Ears Nose Throat (EENT): Tonsil/Adenoidectomy Urologic: Ureterolithotomy (stones) Gynecologic: Hysterectomy Orthopedic: Hip replacement, Arthroscopic surgery, Spine surgery, Other Exam General: Alert Dental: Dentures full Upper, Dentures full Lower Mouth Opening: Greater than 4 Fingerbreadths Neck Mobility: Normal Mallampati classification: I Thyromental Distance: greater than 6 cm Respiratory: Lungs clear Cardiovascular: Regular rate Neurological: Normal speech Mental/Cognitive Status: Alert/Oriented X3 Cognitive Status: Within normal limits Plan Anesthesia Type: General Consent for Procedure(s) Verified and Reviewed: Yes Code Status: Attempt Resuscitation ASA classification: 2-Mild systemic disease Is this case an emergency?: No
[2018-08-14] MEDS ORDERED: LACTATED RINGERS 1,000 ML IV ONE ×2 (10:54→12:54)
[2018-08-14] MEDS ORDERED: BUPIVACAINE 0.25%-EPI 1:200000 PF 30 ML VIAL SUBQ ONE ×2 (12:04)
[2018-08-14] MEDS ORDERED: MIDAZOLAM 2 MG/2 ML VIAL IVP ONE (12:14)
[2018-08-14] MEDS ORDERED: NEOSTIGMINE 1 MG/1 ML 10 ML MDV IVP ONE (12:14)
[2018-08-14] MEDS ORDERED: ONDANSETRON 4 MG/2 ML VIAL IVP ONE (12:14)
[2018-08-14] MEDS ORDERED: ROCURONIUM 50 MG/5 ML VIAL IVP ONE (12:14)
[2018-08-14] MEDS ORDERED: PROPOFOL 200 MG/20 ML VIAL IVP ONE (12:14)
[2018-08-14] MEDS ORDERED: ACETAMINOPHEN 1,000 MG/100 ML 100 ML IV ONE (12:14)
[2018-08-14] MEDS ORDERED: fentaNYL 100 MCG/2 ML VIAL IVP ONE (12:14)
[2018-08-14] MEDS ORDERED: ePHEDrine 50 MG/ML VIAL IVP ONE (12:14)
[2018-08-14] MEDS ORDERED: LIDOCAINE-MPF 2% 5 ML VIAL IM ONE (12:14)
[2018-08-14] MEDS ORDERED: GLYCOPYRROLATE 1 MG/5 ML VIAL IVP ONE (12:14)
[2018-08-14] MEDS ORDERED: KETOROLAC 15 MG/ML VIAL ONE (13:00)
[2018-08-14] MEDS: fentaNYL 100 MCG/2 ML VIAL ONE ×2 (13:01→13:11)
--- NOTE | 2018-08-14 13:18 | OPERATIVE REPORT ---
Operative Report - General Procedure Date: 08/14/18 Planned Procedure: Laproscopic BSO Pre-Op Diagnosis: Persistant left ovarian cysst with mild elivation of CA 125 Procedure Performed: Same Post Op Diagnosis: Same - Procedure Note Primary Surgeon: Adriel Mo MD Anesthesia Provider: Negro Javed MD Anesthesia Technique: General ET tube Pathology: bilateral Tubes and Ovaries with left Peritubal cyst IV Fluids (mL): 900 Estimated Blood Loss (mL): 25 Complications: None
[2018-08-14] MEDS: HYDROmorphone 1 MG/ML CARPUJECT ONE ×3 (13:19→13:37)
[2018-08-14] MEDS ORDERED: oxyCODONE 5 MG TABLET PO PRN (13:20)
[2018-08-14] MEDS ORDERED: ONDANSETRON 4 MG/2 ML VIAL IVP PRN (13:20)
[2018-08-14] MEDS ORDERED: LORazepam 2 MG/ML VIAL IVP PRN (13:20)
[2018-08-14] MEDS ORDERED: HYDROmorphone 0.5 MG/0.5 ML SYRINGE IVP PRN (13:20)
[2018-08-14 13:59] VITALS: BP 109/60
[2018-08-14] MEDS ORDERED: oxyCODONE 5 MG TABLET ONE (13:59)
--- NOTE | 2018-08-14 14:50 | OPERATIVE REPORT ---
DATE OF SERVICE: 08/14/2018 Physician: Adriel Mo MD PREOPERATIVE DIAGNOSIS: Persistent left ovarian cyst with mild elevation of CA- 125. POSTOPERATIVE DIAGNOSIS: Persistent left ovarian cyst with mild elevation of CA-125 with left paratubal cyst. PROCEDURE: Laparoscopic bilateral salpingo-oophorectomy with lysis of left pelvic adhesions. SURGEON: Adriel Mo MD ANESTHESIA: General via endotracheal tube with Negro Wilson MD ESTIMATED BLOOD LOSS: 25 mL IV FLUIDS: 900 mL FINDINGS: Upon entering the abdominal cavity, there was evidence of adhesions of the large bowel to the left pelvic sidewall. The left tube had a paratubal cyst, which appeared to be roughly 1.5 cm. The right tube and ovary were free of disease. DESCRIPTION OF PROCEDURE: Following adequate endotracheal anesthesia, the patient was placed in dorsal lithotomy position. She was then prepped and draped in the usual fashion. A timeout was performed, which concerns were addressed with both by anesthesia, nursing, as well as surgery. At this point, a sponge stick was placed into the vagina. The cable ferry operator's gloves were changed and then a stab wound was made in the subumbilical region with a #11 blade, following local anesthesia of 0.25% Marcaine with epinephrine. A 10 cm trocar was attempted to be placed subumbilically, but because of the increased abdominal wall thickness this was not possible, so a 15 was placed on the first pass. Carbon dioxide was used to insufflate the abdominal cavity. There was no evidence of any injury at site of insertion. Two additional trocars were placed in both the left and the right mid quadrants following local anesthesia of 0.25% Marcaine with epinephrine as well as a skin incision with a #15 blade. The pelvis was inspected with the aforementioned adhesions noted on the left hand side. Pelvic washings obtained. The right ovary was grasped and the infundibulopelvic ligament was cauterized 3 times and divided, then utilizing the LigaSure this was cauterized and transected across the remainder of the attachments of the right tube and ovary. Good hemostasis was observed. At this point, the bowel adhesions to the left pelvic sidewall were taken down with LigaSure. Care was taken to avoid any injury to the bowel. The left tube and ovary were then noted to be free and then the paratubal cyst was noted to be down in the pelvis. The ovary was grasped and then the infundibulopelvic ligament was cauterized and transected. The ovary was freed from the left pelvic sidewall. The ovaries were then brought up through the right lower quadrant incision, which had been extended to accommodate 11 mm trocar. An Endo Catch was used for both ovaries. These were identified separately. At this point, the pelvis was irrigated and no active bleeding was noted, so the right lower quadrant port was removed and a Nikhil-Samantha was placed and this incision was closed with a single suture of #0 Vicryl. The CO2 was then allowed to escape and at this point the skin incisions were all closed using 4-0 Monocryl subcuticular. Dermabond was used to close the incisions themselves. The sponge stick was then removed from the vagina. The patient tolerated the procedure well and was taken to recovery in stable condition. Sponge and needle counts were correct. TD: 08/14/2018 13:36 BONILLA
== END 2018-08-14 10:22 | disposition home or self-care (01) ==
LOC: SDS 10:21
PROVIDERS: ATTEND Obstetrics & Gynecology
PROC: 0UB74ZZ Excision of Bilateral Fallopian Tubes, Percutaneous Endoscopic Approach (ICD-10-PCS; 2018-08-14)
PROC: 0UT24ZZ Resection of Bilateral Ovaries, Percutaneous Endoscopic Approach (ICD-10-PCS; principal; 2018-08-14 11:30)
DX: D27.0 Benign neoplasm of right ovary (principal); D27.1 Benign neoplasm of left ovary; N83.02 Follicular cyst of left ovary; N83.01 Follicular cyst of right ovary; N83.8 Other noninflammatory disorders of ovary, fallopian tube and broad ligament; R97.1 Elevated cancer antigen 125 [CA 125]; G47.33 Obstructive sleep apnea (adult) (pediatric); K21.9 Gastro-esophageal reflux disease without esophagitis; Z79.899 Other long term (current) drug therapy; Z90.710 Acquired absence of both cervix and uterus
CPT/HCPCS: 58661; 93005; A9270; J0131; J0690; J1170; J7120

== ENCOUNTER 2018-08-21 09:48 | Outpatient (CLI) | payer MEDICARE, OTHER | END 2018-08-21 09:49 | disposition home or self-care (01) | LOC: SC 09:48 | PROVIDERS: ATTEND Nurse Practitioner Family | DX: G47.33 Obstructive sleep apnea (adult) (pediatric) (principal) | CPT/HCPCS: 99213; G0463; 99212 ==

== ENCOUNTER 2018-09-24 14:54 | Outpatient (CLI) | payer MEDICARE, OTHER ==
[2018-09-24 19:05] LABS: BUN - BLOOD UREA NITROGEN 9 mg/dL (6-20); CALCIUM 8.5 mg/dL (8.5-10.3); CARBON DIOXIDE - CO2 26 mmol/L (21-32); CHLORIDE 107 mmol/L (101-111); CREATININE 1.1 mg/dL (0.4-1.0); GFR - MDRD 51 (>89); GLUCOSE 88 mg/dL (70-100); SODIUM 140 mmol/L (135-145)
== END 2018-09-24 14:55 | disposition home or self-care (01) ==
LOC: LAB.WCP 14:54
PROVIDERS: ATTEND Family Medicine
DX: E78.6 Lipoprotein deficiency (principal); R94.6 Abnormal results of thyroid function studies; N17.9 Acute kidney failure, unspecified
CPT/HCPCS: 36415; 80048; 84443

== ENCOUNTER 2019-02-11 14:27 | Outpatient (CLI) | payer MEDICARE, OTHER | END 2019-02-11 14:28 | disposition home or self-care (01) | LOC: SC 14:27 | PROVIDERS: ATTEND Nurse Practitioner Family | DX: G47.33 Obstructive sleep apnea (adult) (pediatric) (principal); G47.00 Insomnia, unspecified | CPT/HCPCS: 99214; G0463; 99212 ==

== ENCOUNTER 2019-02-15 13:23 | Emergency (ER) | payer MEDICARE, OTHER ==
[2019-02-15] MEDS ORDERED: HYDROcod/ACETAM 5/325 MG TABLET PO STA (14:13)
--- NOTE | 2019-02-15 14:24 | XRAY Report ---
Reason: dropped piece of wood on the top of her foot Procedure Date: 02/15/2019 Accession Number: [id number] / [id number] Procedure: XR - Foot 3 View RT CPT Code: FULL RESULT: EXAM: RIGHT FOOT RADIOGRAPHY EXAM DATE: 02/15/2019 01:59 PM. CLINICAL HISTORY: Dropped piece of wood on the top of her foot. COMPARISON: None. TECHNIQUE: 3 views. FINDINGS: Bones: Normal. No fractures or bone lesions. Joints: Normal. No subluxations. Soft Tissues: Normal. No soft tissue swelling. IMPRESSION: No acute displaced fracture or malalignment. [facility]
--- NOTE | 2019-02-15 14:31 | ED Physician Documentation ---
PD HPI LOWER EXT INJURY - Stated complaint Stated Complaint: FOOT INJURY - Chief complaint Chief Complaint: Trauma Ext - History obtained from History obtained from: Patient - History of Present Illness PD HPI LOW EXT INJURY LOCATION: Right, Foot Type of injury: Crush Where injury occurred: Home Timing - onset: Today Timing - duration: Hours (2) Timing - details: Abrupt onset Pain level max: 4 Pain level now: 3 Improved by: Rest Worsened by: Moving, Palpating Associated symptoms: No: Weakness, Numbness, Tingling, Swelling Contributing factors: No: Anticoagulated Recently seen: No: Not recently seen - Additional information Additional information: dropped a board on the right foot. Increased pain with walking. 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 : None HEENT: None Psych: Depression Musculoskeletal: Osteopenia, Chronic back pain Derm: None - Past Surgical History Past Surgical History: Yes General: Gastric surgery Ortho: Hip replacement, Arthroscopic surgery, Other /CASINO OPERATIONS SUPERVISOR: Hysterectomy HEENT: Tonsil/Adenoidectomy - Present Medications Home Medications: Ambulatory Orders Medication Instructions Recorded Confirmed Famotidine [Pepcid] 40 mg PO QPM 04/17/16 08/14/18 Trazodone HCl 400 mg PO DAILY 04/17/16 08/14/18 Divalproex Sodium [Depakote ER] 250 mg PO DAILY PM 07/25/17 08/14/18 tiZANidine [Zanaflex] 8 mg PO DAILY PM 08/14/18 08/14/18 Hydrocodone/Acetaminophen 1 - 2 each PO Q6H PRN #10 tablet 02/15/19 [Hydrocodon-Acetaminophen 5-325] Ibuprofen [Motrin] 800 mg PO Q8H PRN #30 tablet 02/15/19 - Allergies Allergies/Adverse Reactions: Allergies Allergy/AdvReac Type Severity Reaction Status Date / Time adhesive tape Allergy Rash Verified 02/15/19 13:30 tetracycline Allergy Unknown Verified 02/15/19 13:30 - Social History Does the pt smoke?: No Smoking Status: Never smoker Does the pt drink ETOH?: No Does the pt have substance abuse?: No - Immunizations Immunizations are current?: Yes - POLST Patient has POLST: No PD ED PE NORMAL - Vitals Vital signs reviewed: Yes - General General: Alert and oriented X 3, No acute distress - HEENT HEENT: Moist mucous membranes - Derm Derm: Warm and dry - Extremities Extremities: Other (R foot - TTP across the base of all the toes. NVI. No swelling or deformity. ) - Neuro Neuro: Alert and oriented X 3 Results - Vitals Vitals: Vital Signs - 24 hr 02/15/19 13:28 Temperature 36.5 C Heart Rate 71 Respiratory 18 Rate Blood Pressure 145/78 H O2 Saturation 99 Oxygen O2 Source Room air - Rads (name of study) R foot xray Radiology: Prelim report reviewed, EMP read contemporaneously, See rad report (normal) PD MEDICAL DECISION MAKING - ED course Complexity details: reviewed results, re-evaluated patient, considered differential, d/w patient ED course: 58-year-old female presents the emergency department the right foot contusion. Negative x-ray. Placed in a postoperative shoe for comfort. We will continue supportive care and follow-up with her doctor. Patient counseled regarding signs and symptoms for which I believe and urgent re-evaluation would be necessary. Patient with good understanding of and agreement to plan and is comfortable going home at this time This document was made in part using voice recognition software. While efforts are made to proofread this document, sound alike and grammatical errors may occur. Departure - Departure Disposition: 01 Home, Self Care Clinical Impression: Foot contusion Qualifiers: Encounter type: initial encounter Laterality: right Qualified Code(s): S90.31XA - Contusion of right foot, initial encounter Condition: Good Instructions: ED Sprain Foot Follow-Up: Connor Downing MD [Primary Care Provider] - Within 1 week (if not better) Prescriptions: Hydrocodone/Acetaminophen [Hydrocodon-Acetaminophen 5-325] 1 - 2 each PO Q6H PRN #10 tablet PRN Reason: pain Ibuprofen [Motrin] 800 mg PO Q8H PRN #30 tablet PRN Reason: PAIN &/OR FEVER Comments: Wear the postoperative shoe for comfort. Return if you worsen. Your x-ray does not show any bony abnormalities today. Do not drink alcohol or drive while on narcotic pain medicine. Note that many narcotic pain relievers also contain tylenol/acetaminophen. Please ensure that your total dose of acetaminophen from all sources does not exceed 3 grams (3000mg) per day. You may constipated on this medication, take a stool softener such as "Colace" twice a day while you are on it. Also recommend a [id number]-[id number] laxative such as senna or MiraLAX any day that you do not have a bowel movement. If you received narcotic pain medication in the emergency department, do not drive or operate machinery for the next 24 hours.
[2019-02-15 14:42] VITALS: BP 141/64
== END 2019-02-15 14:42 | disposition home or self-care (01) ==
LOC: ED 13:23
DX: S90.31XA Contusion of right foot, initial encounter (principal); W22.8XXA Striking against or struck by other objects, initial encounter; Y92.009 Unspecified place in unspecified non-institutional (private) residence as the place of occurrence of the external cause; Z96.649 Presence of unspecified artificial hip joint
CPT/HCPCS: 73630; 99283; A9270

== ENCOUNTER 2019-04-15 15:20 | Outpatient (CLI) | payer MEDICARE, OTHER | END 2019-04-15 15:21 | disposition home or self-care (01) | LOC: SC 15:20 | PROVIDERS: ATTEND Nurse Practitioner Family | DX: G47.33 Obstructive sleep apnea (adult) (pediatric) (principal) | CPT/HCPCS: 99214; G0463; 99212 ==

== ENCOUNTER 2019-04-25 11:13 | Outpatient (CLI) | payer MEDICARE, OTHER ==
[2019-04-25 11:53] LABS: BASOPHILS % (AUTO) 0.7 %; EOSINOPHILS # (AUTO) 0.1 10^3/uL (0.0-0.7); EOSINOPHILS % (AUTO) 1.7 %; HGB - HEMOGLOBIN 13.6 g/dL (12.0-16.0); LYMPHOCYTES # (AUTO) 1.9 10^3/uL (1.5-3.5); LYMPHOCYTES % (AUTO) 41.2 %; MEAN CORPUSCULAR HEMOGLOBIN 28.6 pg (27.0-31.0); MEAN CORPUSCULAR HGB CONC 33.2 g/dL (32.0-36.0); MEAN CORPUSCULAR VOLUME 86.1 fL (81.0-99.0); MEAN PLATELET VOLUME 7.1 fL (7.9-10.8); MONOCYTES # (AUTO) 0.3 10^3/uL (0.0-1.0); MONOCYTES % (AUTO) 6.1 %; NEUTROPHILS # (AUTO) 2.4 10^3/uL (1.5-6.6); NEUTROPHILS % (AUTO) 50.3 %; PLT - PLATELET COUNT 203 10^3/uL (130-450); RED BLOOD COUNT 4.75 10^6/uL (4.20-5.40); RED CELL DISTRIBUTION WIDTH 12.7 % (12.0-15.0); WHITE BLOOD COUNT 4.7 x10^3/uL (4.8-10.8)
[2019-04-25 12:07] LABS: ALBUMIN 3.8 g/dL (3.2-5.5); ALBUMIN/GLOBULIN RATIO 1.3 (1.0-2.2); ALKALINE PHOSPHATASE 62 IU/L (42-121); ALT ALANINE AMINOTRANSFERASE < 10 IU/L (10-60); AST ASPARTATE AMINOTRANSFERASE 12 IU/L (10-42); BILIRUBIN,TOTAL 0.6 mg/dL (0.2-1.0); BUN - BLOOD UREA NITROGEN 14 mg/dL (6-20); CALCIUM 9.3 mg/dL (8.5-10.3); CARBON DIOXIDE - CO2 25 mmol/L (21-32); CHLORIDE 103 mmol/L (101-111); CHOL/HDL RATIO 5.3 (<4.4); CHOLESTEROL 230 mg/dL; CREATININE 1.1 mg/dL (0.4-1.0); GFR - MDRD 50 (>89); GLUCOSE 101 mg/dL (70-100); HDL CHOLESTEROL 43 mg/dL; LDL CHOLESTEROL,CALCULATED 150 mg/dL; LDL/HDL RATIO 3.5 (<4.4); SODIUM 138 mmol/L (135-145); TOTAL PROTEIN 6.7 g/dL (6.7-8.2); VLDL CHOLESTEROL 37 mg/dL
[2019-04-26 00:32] LABS: HB2 TOTAL 14.8 g/dL; HEMOGLOBIN A1C 0.54 g/dL; HEMOGLOBIN A1C % 5.5 % (4.6-6.2)
== END 2019-04-25 11:14 | disposition home or self-care (01) ==
LOC: LAB 11:13
PROVIDERS: ATTEND Family Medicine
DX: K52.9 Noninfective gastroenteritis and colitis, unspecified (principal); R53.83 Other fatigue; E16.1 Other hypoglycemia; R06.00 Dyspnea, unspecified
CPT/HCPCS: 36415; 80053; 80061; 81599; 83036; 83721; 83880; 84443; 85025